=== PATIENT | female | born 1995 | race American Indian/Alaskan Native ===

== ENCOUNTER 2019-05-09 20:42 | Inpatient (IN) | payer MEDICAID ==
[2019-05-09] MEDS ORDERED: DINOPROSTONE 10 MG VAG SUPP VG ONE (22:58)
[2019-05-09] MEDS ORDERED: ePHEDrine SULFATE 50 MG/1 ML INJ IV PRN (22:58)
[2019-05-09] MEDS ORDERED: TERBUTALINE 1 MG/1 ML INJ IVP PRN (22:58)
[2019-05-09] MEDS ORDERED: MINERAL OIL 30 ML ORAL LIQD PO PRN (22:58)
[2019-05-09] MEDS ORDERED: LIDOCAINE (2%) 20 MG/1 ML VIAL 20 ML MDV INFILTRATI ONE (22:58)
[2019-05-09] MEDS ORDERED: TERBUTALINE 1 MG/1 ML INJ SUB-Q PRN (22:58)
[2019-05-09] MEDS ORDERED: OXYTOCIN 20 UNIT/1000ML DRIP 20 UNITS/1,000 ML BAG IV SCH (23:00)
[2019-05-09 23:02] LABS: Hematocrit 34.7 % (30.3-42.9); Hemoglobin 11.5 gm/dl (10.1-14.3); Mean Corpuscular HGB Conc 33 % (30-34); Mean Corpuscular Volume 80 fl (79-97); Platelet Count 226 K/mm3 (140-440); Red Blood Count 4.33 M/mm3 (3.65-5.03); Red Cell Distribution Width 16.5 % (13.2-15.2)
[2019-05-10] MEDS ORDERED: ONDANSETRON 4 MG/2 ML INJ IV PRN (03:07)
[2019-05-10] MEDS: fentaNYL 100 MCG/2 ML INJ IV PRN (03:32)
[2019-05-10] MEDS: BUTORPHANOL 2 MG/1 ML INJ IV PRN ×3 (05:05→23:06)
[2019-05-10] MEDS: LACTATED RINGERS 1,000 ML IV SCH ×4 (05:10→20:02)
--- NOTE | 2019-05-10 05:22 | History and Physical Report ---
History of Present Illness Date of examination: 05/10/19 Date of admission: 05/09/19 20:42 Chief complaint: IOL secondary to morbid obesity History of present illness: 23 yo, @ 39.5 wks gestation, who initiated care with [facility] at 17.0 wks gestation. Care was co-managed by [facility] d/t morbid obesity. Her was complicated by Late PNC, Morbid obesity, Anemia, and Vit D deficiency. She reports to [facility] for IOL secondary to morbid obesity per [facility] recommendations. Reports + FM. Denies VB or LOF. Labs: A+, antibody negative; PAP normal; rubella immune; VDRL non-reactive; HBsAg negative; HIV negative; Gc/Chlamydia/Trich negative; Varicella immune HSVII negative; 1 hr Gtt - 101; GBS negative. Past History Past Medical History: other (Morbid obesity (BMI - 40.9); Anemia) Past Surgical History: no surgical history Family/Genetic History: diabetes, hypertension (maternal aunt), other (Chronic Bronchitis) Social history: single, full code. denies: smoking, alcohol abuse, prescription drug abuse, IV drug use - Obstetrical History Expected Date of Delivery: 05/12/19 Actual Gestation: 39 Week(s) 5 Day(s) : 1 Para: 0 Hx # Term Pregnancies: 0 Number of Pregnancies: 0 Spontaneous Abortions: 0 Induced : 0 Number of Living Children: 0 Medications and Allergies Allergies Allergy/AdvReac Type Severity Reaction Status Date / Time No Known Allergies Allergy Verified 05/09/19 23:08 Active Meds: Active Medications Butorphanol Tartrate (Stadol) 2 mg IV Q2H PRN PRN Reason: Labor Pain Last Admin: 05/10/19 05:05 Dose: 2 mg Documented by: Ephedrine Sulfate (Ephedrine Sulfate) 10 mg IV Q2M PRN PRN Reason: Hypotension Fentanyl (Sublimaze) 100 mcg IV Q2HR PRN PRN Reason: Labor Pain Last Admin: 05/10/19 03:32 Dose: 100 mcg Documented by: Oxytocin/Sodium Chloride (Pitocin/Ns 20 Unit/1000ml Drip) 20 units in 1,000 mls @ 125 mls/hr IV DIRECT RAVINDRA Lactated Ringer's (Lactated Ringers) 1,000 mls @ 125 mls/hr IV DIRECT RAVINDRA Last Admin: 05/10/19 05:10 Dose: 1,200 mls/hr Documented by: Mineral Oil (Mineral Oil) 30 ml PO QHS PRN PRN Reason: Constipation Ondansetron HCl (Zofran) 4 mg IV Q4H PRN PRN Reason: Nausea And Vomiting Last Admin: 05/10/19 03:32 Dose: 4 mg Documented by: Terbutaline Sulfate (Brethine) 0.25 mg SUB-Q ONCE PRN PRN Reason: Hyperstimulation/Hypertonicity Terbutaline Sulfate (Brethine) 0.25 mg IVP ONCE PRN PRN Reason: Hyperstimulation/Hypertonicity Review of Systems All systems: negative - Vital Signs Vital signs: Vital Signs Temp Pulse Resp BP 98.4 F 90 18 140/84 05/09/19 22:21 05/09/19 22:21 05/09/19 22:21 05/09/19 22:21 Temp Pulse Resp BP Pulse Ox 97.8 F 88 18 120/60 05/10/19 04:00 05/10/19 03:48 05/10/19 04:00 05/10/19 03:48 - Physical Exam Breasts: Positive: deferred Cardiovascular: Regular rate Lungs: Positive: Normal air movement Abdomen: Positive: other (gravid) Uterus: Positive: enlarged (S>D) Extremities: Positive: normal Deep Tendon Reflex Grade: Normal +2 - Obstetrical FHR: category 1 Uterine Contraction Monitor Mode: External Cervical Dilatation: 0 Cervical Effacement Percentage: 50 station: -3 Uterine Contraction Pattern: Irregular Uterine Tone Measurement Phase: Resting Uterine Contraction Intensity: Mild Results Result Diagrams: 05/09/19 22:38 Abnormal lab results 05/09/19 Range/Units 22:38 MCH 27 L (28-32) pg RDW 16.5 H (13.2-15.2) % All other labs normal. Assessment and Plan - Patient Problems (1) Encounter for induction of labor Current Visit: Yes Status: Acute Plan to address problem: Admit to L & D Cervidil placement x 12 hrs as tolerated Pain meds as desired Anticipate (2) Morbid obesity with BMI of 40.0-44.9, adult Current Visit: Yes Status: Acute (3) Late care Current Visit: Yes Status: Acute
--- NOTE | 2019-05-10 09:25 | Progress Note ---
Assessment and Plan - Patient Problems (1) 39 weeks gestation of Current Visit: Yes Status: Acute (2) Encounter for induction of labor Current Visit: Yes Status: Acute Plan to address problem: Continue routine labor orders Order given for 500ml IVF bolus Will continue cervical ripening, as appropriate Anticipate vaginal delivery (3) Morbid obesity with BMI of 40.0-44.9, adult Current Visit: Yes Status: Acute Subjective - Subjective Date of service: 05/10/19 Principal diagnosis: IUP @ 39 weeks 5 days; IOL secondary to Morbid Obesity Interval history: see H&P Pt in right lateral position with family members at bedside. Patient reports: movement normal, contractions, no loss of fluid, no vaginal bleeding Objective - Vital Signs Vital Signs: Vital Signs - 12hr 05/09/19 05/09/19 05/10/19 22:21 22:37 00:00 Temperature 98.4 F 98.2 F Pulse Rate 90 90 Respiratory 18 18 Rate Blood Pressure 140/84 Blood Pressure 140/84 [Right] 05/10/19 05/10/19 05/10/19 00:01 03:41 03:48 Temperature Pulse Rate 76 87 88 Respiratory Rate Blood Pressure 109/60 123/69 120/60 Blood Pressure [Right] 05/10/19 05/10/19 04:00 07:31 Temperature 97.8 F 98.3 F Pulse Rate 75 Respiratory 18 18 Rate Blood Pressure 98/55 Blood Pressure [Right] - Exam FHR: auscultation normal, category 1 FHR comments: baseline 120, moderate variability, 15x15 accels, no decels Uterine Contraction Monitor Mode: External Cervical Dilatation: 1 Cervical Effacement Percentage: 30 station: -3 Uterine Contraction Frequency (min): 1 Uterine Contraction Pattern: Regular (tachysystole present) - Labs Labs: Abnormal Labs 05/09/19 22:38 MCH 27 L RDW 16.5 H Laboratory Results - last 24 hr 05/09/19 05/09/19 22:38 22:38 WBC 7.5 RBC 4.33 Hgb 11.5 Hct 34.7 MCV 80 MCH 27 L MCHC 33 RDW 16.5 H Plt Count 226 Blood Type A POSITIVE Antibody Screen Negative
[2019-05-10] MEDS: OXYTOCIN DRIP 30 UNITS/500 ML BAG IV SCH (12:50)
[2019-05-11] MEDS: BUTORPHANOL 2 MG/1 ML INJ IV PRN (01:19)
[2019-05-11] MEDS: fentaNYL 100 MCG/2 ML INJ IV PRN (03:18)
[2019-05-11] MEDS: LACTATED RINGERS 1,000 ML IV SCH ×2 (05:58→08:01)
[2019-05-11] MEDS ORDERED: ePHEDrine SULFATE 50 MG/1 ML INJ IV PRN (06:44)
[2019-05-11] MEDS ORDERED: NALOXONE 2 MG/2 ML INJ IV PRN (06:44)
--- NOTE | 2019-05-11 06:46 | Anesthesia Consultation ---
Anesthesia Consult and Med Hx Date of service: 05/11/19 - Airway Anesthetic Teeth Evaluation: Good ROM Head & Neck: Adequate Mental/Hyoid Distance: Adequate Mallampati Class: Class III Intubation Access Assessment: Probably Good - Pulmonary Exam CTA: Yes - Cardiac Exam Cardiac Exam: RRR - Pre-Operative Health Status ASA Pre-Surgery Classification: ASA3 Proposed Anesthetic Plan: Epidural - Pulmonary Hx Smoking: No Hx Asthma: No Hx Respiratory Symptoms: No SOB: No COPD: No Home Oxygen Therapy: No Hx Pneumonia: No Hx Sleep Apnea: No - Cardiovascular System Hx Hypertension: No Hx Coronary Artery Disease: No Hx Heart Attack/AMI: No Hx Angina: No Hx Percutaneous Transluminal Coronary Angioplasty (PTCA): No Hx Cardia Arrhythmia: No Hx Pacemaker: No Hx Internal Defibrillator: No Hx Valvular Heart Disease: No Hx Heart Murmur: No Hx Peripheral Vascular Disease: No - Central Nervous System Hx Neuromuscular Disorder: No Hx Seizures: No CVA: No Hx Back Pain: No Hx Psychiatric Problems: No - Gastrointestinal Hx Ulcer: No Hx Gastroesophageal Reflux Disease: No - Endocrine Hx Renal Disease: No Hx End Stage Renal Disease: No Hx Cirrhosis: No Hx Liver Disease: No Hx Insulin Dependent Diabetes: No Hx Non-Insulin Dependent Diabetes: No Hx Thyroid Disease: No Hx Hypothyroidism: No Hx Hyperthyroidism: No - Hematic Hx Anemia: No Hx Sickle Cell Disease: No - Other Systems Hx Alcohol Use: No Hx Substance Use: No Hx Cancer: No Hx Obesity: Yes (BMI 43.9)
[2019-05-11] MEDS ORDERED: fentaNYL-BUPIV 2 MCG/ML-0.125% 200 MCG/100 ML BAG EPIDURAL SCH (07:00)
[2019-05-11] MEDS ORDERED: AMPICILLIN/NS 2 GM/100 ML 2 GM/100 ML BAG IV ONE (08:00)
[2019-05-11] MEDS: OXYTOCIN DRIP 30 UNITS/500 ML BAG IV SCH (08:03)
--- NOTE | 2019-05-11 10:21 | Progress Note ---
Assessment and Plan A: IUP @ 39 6/7 Weeks Category I Tracing Protracted Labor Maternal Obesity GBS Positive P: Internals X2 placed Continue Pitocin Augmentation Multiple Maternal Position Changes Continue GBS Prophylaxis Subjective - Subjective Date of service: 05/11/19 Principal diagnosis: IUP @ 39 weeks 5 days; IOL secondary to Morbid Obesity Patient reports: movement normal, contractions (Resting well under epidural anesthesia), no loss of fluid, no vaginal bleeding Objective - Vital Signs Vital Signs: Vital Signs - 12hr 05/10/19 05/10/19 05/10/19 22:30 22:31 22:35 Temperature Pulse Rate 60 62 60 Respiratory Rate Blood Pressure 110/58 O2 Sat by Pulse 98 99 Oximetry 05/10/19 05/10/19 05/10/19 22:40 22:51 22:56 Temperature Pulse Rate 68 70 61 Respiratory Rate Blood Pressure O2 Sat by Pulse 98 100 99 Oximetry 05/10/19 05/10/19 05/10/19 23:01 23:06 23:11 Temperature Pulse Rate 73 76 70 Respiratory Rate Blood Pressure 130/68 O2 Sat by Pulse 99 99 98 Oximetry 05/10/19 05/10/19 05/10/19 23:15 23:16 23:30 Temperature Pulse Rate 68 67 66 Respiratory Rate Blood Pressure 142/78 O2 Sat by Pulse 94 97 Oximetry 05/11/19 05/11/19 05/11/19 00:13 00:14 00:18 Temperature Pulse Rate 69 86 88 Respiratory Rate Blood Pressure 118/59 O2 Sat by Pulse 90 94 Oximetry 05/11/19 05/11/19 05/11/19 00:23 00:28 00:29 Temperature Pulse Rate 64 76 79 Respiratory Rate Blood Pressure O2 Sat by Pulse 96 95 94 Oximetry 05/11/19 05/11/19 05/11/19 00:31 00:33 00:38 Temperature Pulse Rate 65 92 H 68 Respiratory Rate Blood Pressure 135/74 O2 Sat by Pulse 95 95 Oximetry 05/11/19 05/11/19 05/11/19 00:43 00:48 00:53 Temperature Pulse Rate 72 71 90 Respiratory Rate Blood Pressure O2 Sat by Pulse 95 94 97 Oximetry 05/11/19 05/11/19 05/11/19 00:58 01:00 01:03 Temperature Pulse Rate 65 74 69 Respiratory Rate Blood Pressure 143/82 O2 Sat by Pulse 94 97 Oximetry 05/11/19 05/11/19 05/11/19 01:07 01:08 01:13 Temperature Pulse Rate 83 78 87 Respiratory Rate Blood Pressure O2 Sat by Pulse 88 100 98 Oximetry 05/11/19 05/11/19 05/11/19 01:14 01:18 01:19 Temperature Pulse Rate 69 79 Respiratory 18 Rate Blood Pressure O2 Sat by Pulse 94 95 Oximetry 05/11/19 05/11/19 05/11/19 01:21 01:23 01:27 Temperature Pulse Rate 67 65 69 Respiratory Rate Blood Pressure O2 Sat by Pulse 93 94 89 Oximetry 05/11/19 05/11/19 05/11/19 01:28 01:30 01:32 Temperature Pulse Rate 88 63 75 Respiratory Rate Blood Pressure 144/82 O2 Sat by Pulse 93 90 Oximetry 05/11/19 05/11/19 05/11/19 01:33 01:38 01:43 Temperature Pulse Rate 66 62 88 Respiratory Rate Blood Pressure O2 Sat by Pulse 94 95 94 Oximetry 05/11/19 05/11/19 05/11/19 01:48 01:49 01:53 Temperature Pulse Rate 97 H 73 68 Respiratory Rate Blood Pressure O2 Sat by Pulse 94 92 96 Oximetry 05/11/19 05/11/19 05/11/19 01:56 01:58 01:59 Temperature Pulse Rate 65 64 63 Respiratory Rate Blood Pressure 123/57 O2 Sat by Pulse 94 95 Oximetry 05/11/19 05/11/19 05/11/19 02:02 02:03 02:08 Temperature Pulse Rate 63 99 H 60 Respiratory Rate Blood Pressure O2 Sat by Pulse 94 97 95 Oximetry 05/11/19 05/11/19 05/11/19 02:09 02:13 02:17 Temperature Pulse Rate 68 81 101 H Respiratory Rate Blood Pressure O2 Sat by Pulse 94 97 85 Oximetry 05/11/19 05/11/19 05/11/19 02:41 02:43 02:46 Temperature Pulse Rate 67 60 90 Respiratory Rate Blood Pressure 131/67 O2 Sat by Pulse 97 96 Oximetry 05/11/19 05/11/19 05/11/19 02:51 02:56 03:00 Temperature Pulse Rate 66 60 61 Respiratory Rate Blood Pressure 145/68 O2 Sat by Pulse 97 96 90 Oximetry 05/11/19 05/11/19 05/11/19 03:01 03:05 03:06 Temperature Pulse Rate 70 99 H 86 Respiratory Rate Blood Pressure O2 Sat by Pulse 97 94 94 Oximetry 05/11/19 05/11/19 05/11/19 03:11 03:12 03:16 Temperature Pulse Rate 58 L 107 H 66 Respiratory Rate Blood Pressure O2 Sat by Pulse 96 94 96 Oximetry 05/11/19 05/11/19 05/11/19 03:18 03:21 03:25 Temperature Pulse Rate 61 78 Respiratory 18 Rate Blood Pressure O2 Sat by Pulse 97 94 Oximetry 05/11/19 05/11/19 05/11/19 03:26 03:30 04:01 Temperature Pulse Rate 71 67 70 Respiratory Rate Blood Pressure 158/95 142/81 O2 Sat by Pulse 95 Oximetry 05/11/19 05/11/19 05/11/19 04:31 05:00 05:30 Temperature Pulse Rate 83 86 70 Respiratory Rate Blood Pressure 124/68 139/78 122/58 O2 Sat by Pulse Oximetry 05/11/19 05/11/19 05/11/19 05:50 05:55 06:00 Temperature Pulse Rate 107 H 94 H 82 Respiratory Rate Blood Pressure 150/77 O2 Sat by Pulse 99 100 99 Oximetry 05/11/19 05/11/19 05/11/19 06:05 06:09 06:10 Temperature Pulse Rate 82 88 74 Respiratory Rate Blood Pressure 110/58 O2 Sat by Pulse 98 99 Oximetry 05/11/19 05/11/19 05/11/19 06:12 06:13 06:15 Temperature Pulse Rate 86 101 H 86 Respiratory Rate Blood Pressure 104/55 98/36 O2 Sat by Pulse 50 L 97 Oximetry 05/11/19 05/11/19 05/11/19 06:17 06:19 06:20 Temperature Pulse Rate 171 H 56 L 90 Respiratory Rate Blood Pressure 153/72 O2 Sat by Pulse 83 L 95 Oximetry 05/11/19 05/11/19 05/11/19 06:24 06:25 06:26 Temperature Pulse Rate 64 67 61 Respiratory Rate Blood Pressure 75/36 84/46 O2 Sat by Pulse 99 Oximetry 05/11/19 05/11/19 05/11/19 06:29 06:30 06:32 Temperature Pulse Rate 56 L 64 60 Respiratory Rate Blood Pressure 95/50 91/49 74/40 O2 Sat by Pulse 100 Oximetry 05/11/19 05/11/19 05/11/19 06:34 06:35 06:36 Temperature Pulse Rate 58 L 70 63 Respiratory Rate Blood Pressure 77/41 74/37 O2 Sat by Pulse 100 Oximetry 05/11/19 05/11/19 05/11/19 06:38 06:40 06:42 Temperature Pulse Rate 60 71 85 Respiratory Rate Blood Pressure 75/41 79/44 O2 Sat by Pulse 100 78 L Oximetry 05/11/19 05/11/19 05/11/19 06:45 06:46 06:50 Temperature Pulse Rate 64 64 81 Respiratory Rate Blood Pressure 85/47 O2 Sat by Pulse 100 100 Oximetry 05/11/19 05/11/19 05/11/19 06:54 06:55 06:57 Temperature Pulse Rate 67 88 83 Respiratory Rate Blood Pressure 87/48 89/50 O2 Sat by Pulse 93 93 Oximetry 05/11/19 05/11/19 05/11/19 07:00 07:02 07:05 Temperature Pulse Rate 65 85 76 Respiratory Rate Blood Pressure O2 Sat by Pulse 100 46 L 100 Oximetry 05/11/19 05/11/19 05/11/19 07:07 07:10 07:12 Temperature Pulse Rate 71 71 60 Respiratory Rate Blood Pressure 88/51 89/51 O2 Sat by Pulse 100 Oximetry 05/11/19 05/11/19 05/11/19 07:15 07:19 07:20 Temperature Pulse Rate 70 58 L 60 Respiratory Rate Blood Pressure 92/54 O2 Sat by Pulse 100 100 Oximetry 05/11/19 05/11/19 05/11/19 07:22 07:25 07:26 Temperature 97.8 F Pulse Rate 68 68 68 Respiratory 16 Rate Blood Pressure 86/48 85/47 O2 Sat by Pulse 100 Oximetry 05/11/19 05/11/19 05/11/19 07:28 07:29 07:30 Temperature Pulse Rate 87 59 L 63 Respiratory Rate Blood Pressure 133/61 O2 Sat by Pulse 90 100 Oximetry 05/11/19 05/11/19 05/11/19 07:33 07:35 07:40 Temperature Pulse Rate 60 64 68 Respiratory Rate Blood Pressure 129/67 O2 Sat by Pulse 100 100 Oximetry 05/11/19 05/11/19 05/11/19 07:45 07:50 07:55 Temperature Pulse Rate 66 63 66 Respiratory Rate Blood Pressure O2 Sat by Pulse 100 100 100 Oximetry 05/11/19 05/11/19 05/11/19 08:00 08:04 08:05 Temperature Pulse Rate 64 64 62 Respiratory Rate Blood Pressure 143/75 O2 Sat by Pulse 100 100 Oximetry 05/11/19 05/11/19 05/11/19 08:10 08:15 08:20 Temperature Pulse Rate 69 77 66 Respiratory Rate Blood Pressure O2 Sat by Pulse 100 100 100 Oximetry 05/11/19 05/11/19 05/11/19 08:21 08:25 08:30 Temperature Pulse Rate 65 71 65 Respiratory Rate Blood Pressure 132/73 O2 Sat by Pulse 100 100 Oximetry 05/11/19 05/11/19 05/11/19 08:34 08:35 08:40 Temperature Pulse Rate 72 66 81 Respiratory Rate Blood Pressure 126/74 O2 Sat by Pulse 100 100 Oximetry 05/11/19 05/11/19 05/11/19 08:45 08:49 08:50 Temperature Pulse Rate 87 81 103 H Respiratory Rate Blood Pressure 130/77 O2 Sat by Pulse 100 97 Oximetry 05/11/19 05/11/19 05/11/19 09:03 09:04 09:08 Temperature Pulse Rate 71 66 66 Respiratory Rate Blood Pressure 117/55 O2 Sat by Pulse 97 98 Oximetry 05/11/19 05/11/19 05/11/19 09:13 09:18 09:19 Temperature Pulse Rate 70 71 75 Respiratory Rate Blood Pressure 112/58 O2 Sat by Pulse 95 96 Oximetry 05/11/19 05/11/19 05/11/19 09:23 09:24 09:28 Temperature Pulse Rate 71 78 68 Respiratory Rate Blood Pressure O2 Sat by Pulse 97 94 95 Oximetry 05/11/19 05/11/19 05/11/19 09:33 09:35 09:38 Temperature Pulse Rate 68 77 61 Respiratory Rate Blood Pressure 115/56 O2 Sat by Pulse 97 100 Oximetry 05/11/19 05/11/19 05/11/19 09:43 09:48 09:49 Temperature Pulse Rate 71 75 75 Respiratory Rate Blood Pressure 113/64 O2 Sat by Pulse 100 100 Oximetry 05/11/19 05/11/19 05/11/19 09:53 09:58 10:03 Temperature Pulse Rate 65 64 71 Respiratory Rate Blood Pressure O2 Sat by Pulse 100 100 100 Oximetry 05/11/19 05/11/19 05/11/19 10:04 10:08 10:13 Temperature Pulse Rate 65 68 64 Respiratory Rate Blood Pressure 117/62 O2 Sat by Pulse 100 100 Oximetry - Exam Breasts: normal Cardiovascular: Regular rate Lungs: Clear to auscultation, Normal air movement Abdomen: Present: normal appearance, soft Uterus: Present: normal, firm, fundal height above umbilicus FHR: category 1 Uterine Contraction Monitor Mode: Internal Cervical Dilatation: 7.5 (leaking a moderate amount of clear fluid) Cervical Effacement Percentage: 90 station: 0 Uterine Contraction Pattern: Irregular Uterine Tone Measurement Phase: Resting Uterine Contraction Intensity: Moderate Extremities: normal - Labs Labs: Abnormal Labs 05/09/19 22:38 MCH 27 L RDW 16.5 H Laboratory Results - last 24 hr 05/09/19 22:38 RPR Nonreactive
[2019-05-11] MEDS ORDERED: AMPICILLIN/NS 1 GM/50 ML 1 GM/50 ML BAG IV SCH (12:00)
[2019-05-11] MEDS ORDERED: MINERAL OIL 30 ML ORAL LIQD ONE (14:26)
[2019-05-11] MEDS ORDERED: miSOPROStol 200 MCG TAB ONE (14:36)
[2019-05-11] MEDS ORDERED: OXYTOCIN 10 UNIT/1 ML INJ IM ONE (14:40)
[2019-05-11] MEDS ORDERED: OXYTOCIN 10 UNIT/1 ML INJ ONE (14:49)
[2019-05-11] MEDS ORDERED: miSOPROStol 200 MCG TAB PR ONE (15:06)
[2019-05-11] MEDS ORDERED: LANOLIN/ZINC/DIMETHICONE (LANSINOH) 7 GM TP PRN (15:08)
[2019-05-11] MEDS ORDERED: diphenhydrAMINE 25 MG CAP PO PRN (15:08)
--- NOTE | 2019-05-11 15:23 | Procedure Note ---
OB Delivery Note - Delivery Date of Delivery: 05/11/19 (1430) Surgeon: REMI HUFF Estimated blood loss: other (350) - Vaginal Delivery presentation: vertex Delivery position: OA Intrapartum events: prolonged active phase Delivery induction: oxytocin Delivery augmentation: pitocin Delivery monitor: internal FHT, internal uterine Route of delivery: Delivery placenta: spontaneous Delivery cord: 3 umbilical vessels Episiotomy: none Delivery laceration: 2nd degree Delivery repair: vicryl Anesthesia: epidural Delivery comments: of a live 7'9 male over a 2nd degree perineal laceration under epidural anesthesia with Apgars of 8 and 9 at 1430 on 05/11/2019. Infant directly to maternal abd/chest, skin to skin contact. Spontaneous delivery of placenta complete and intact with [place] side presenting @ 1433. Fundus is firm and midline. 800mcg of Cytotec placed per rectum; 10U of Pitocin given after placental delivery; IV access was lost at time of . Lochia is scant. Perineal laceration repaired with 2-[address]-1. Delayed cord clamping and cutting; Cord cut by the Father of the Baby. Placenta discarded. GBS prophylaxis x2. - A at 1 minute: 8 at 5 minutes: 9 Gender: Male (7'9)
[2019-05-11] MEDS ORDERED: MINERAL OIL 30 ML ORAL LIQD PO ONE (16:00)
[2019-05-11] MEDS: HYDROcodone/ACETAMINOPHEN 5-325 MG TAB PO PRN ×2 (17:38→18:02)
[2019-05-11] MEDS: IBUPROFEN 600 MG TAB PO SCH (22:22)
[2019-05-12] MEDS: HYDROcodone/ACETAMINOPHEN 5-325 MG TAB PO PRN (00:05)
[2019-05-12] MEDS: IBUPROFEN 600 MG TAB PO SCH ×5 (04:06→21:35)
[2019-05-12 04:21] LABS: Hematocrit 29.8 % (30.3-42.9); Hemoglobin 9.7 gm/dl (10.1-14.3)
--- NOTE | 2019-05-12 10:53 | Progress Note ---
Assessment and Plan A: PPD#1 s/p Bottlefeeding Asymptomatic anemia Stable P: Routine PP orders Anticipate discharge home 05/13 Subjective - Subjective Date of service: 05/12/19 Principal diagnosis: PPD#1 s/p 05/11 @ 14:30 Patient reports: appetite normal, voiding normally, pain well controlled, flatus, ambulating normally : doing well, bottle feeding Objective - Vital Signs Latest vital signs: Vital Signs Temp Pulse Resp BP Pulse Ox 05/12/19 08:10 98.0 F 76 20 120/76 98 05/12/19 00:40 98.4 F 97 H 20 126/82 99 05/11/19 20:12 98.7 F 82 20 118/68 99 05/11/19 16:19 88 130/77 05/11/19 15:49 86 135/76 05/11/19 15:42 98.3 F 12 05/11/19 15:34 85 125/72 05/11/19 15:30 96 H 121/78 05/11/19 14:28 112 H 100 05/11/19 14:23 117 H 100 05/11/19 14:21 120 H 155/94 05/11/19 14:18 106 H 100 05/11/19 14:13 88 100 05/11/19 14:08 104 H 100 05/11/19 14:05 100 H 108/56 05/11/19 14:03 114 H 100 05/11/19 13:58 107 H 100 05/11/19 13:53 102 H 100 05/11/19 13:49 105 H 122/83 05/11/19 13:48 104 H 100 05/11/19 13:43 116 H 100 05/11/19 13:38 109 H 100 05/11/19 13:35 104 H 140/91 05/11/19 13:33 109 H 100 05/11/19 13:28 101 H 100 05/11/19 13:23 100 H 100 05/11/19 13:20 108 H 132/94 05/11/19 13:18 102 H 100 05/11/19 13:13 112 H 100 05/11/19 13:08 98 H 100 05/11/19 13:04 107 H 129/81 05/11/19 13:03 114 H 76 L 05/11/19 12:58 72 100 05/11/19 12:53 96 H 100 05/11/19 12:49 70 121/76 05/11/19 12:48 71 100 05/11/19 12:43 90 100 05/11/19 12:38 72 100 05/11/19 12:34 64 123/70 05/11/19 12:33 75 100 05/11/19 12:28 94 H 100 05/11/19 12:23 65 100 05/11/19 12:19 71 127/73 05/11/19 12:18 72 100 05/11/19 12:13 67 100 05/11/19 12:08 69 100 05/11/19 12:04 62 121/73 05/11/19 12:03 63 100 05/11/19 11:58 66 100 05/11/19 11:53 69 100 05/11/19 11:49 65 123/72 05/11/19 11:48 69 100 05/11/19 11:43 68 100 05/11/19 11:38 64 100 05/11/19 11:34 63 127/77 05/11/19 11:33 65 100 05/11/19 11:28 64 100 05/11/19 11:23 66 100 05/11/19 11:19 70 126/70 05/11/19 11:18 71 100 05/11/19 11:13 64 100 05/11/19 11:08 67 100 05/11/19 11:04 59 L 116/68 05/11/19 11:03 74 100 05/11/19 10:58 64 100 05/11/19 10:53 72 100 Intake and Output 05/11/19 05/12/19 05/12/19 23:59 07:59 15:59 Intake Total 440 480 Output Total 6 Balance 440 474 Intake: Oral 440 Intake, Free Water 480 Output: Urine 6 Void 6 Other: Total, Intake Amount 120 Total, Output Amount 6 # Voids Void 1 Estimated Blood Loss 350 - Exam Breasts: Present: normal Cardiovascular: Present: Regular rate, Normal S1, Normal S2, No murmurs Lungs: Present: Clear to auscultation, Normal air movement Abdomen: Present: normal appearance, soft, normal bowel sounds Vulva: both: laceration/episiotomy (well approximated) Uterus: Present: firm, fundal height at umbilicus Extremities: Present: normal Deep Tendon Reflex Grade: Normal +2 - Labs Labs: Abnormal lab results 05/12/19 Range/Units 03:54 Hgb 9.7 L (10.1-14.3) gm/dl Hct 29.8 L (30.3-42.9) %
--- NOTE | 2019-05-12 10:54 | Discharge Summary ---
Providers - Providers Date of Admission: 05/09/19 20:42 Date of discharge: 05/13/19 Attending physician: CANDI ARAUZ MD Primary care physician: CANDI ARAUZ MD Hospitalization Reason for admission: induction of labor, IUP at term, other (Obesity) Delivery: Procedure details: see delivery note Episiotomy: none Laceration: 2nd degree (well approximated) Other procedures: none complications: none Discharge diagnosis: IUP at term delivered baby: male Condition at discharge: Good Disposition: DC-01 TO HOME OR SELFCARE Plan - Provider Discharge Summary Activity: routine, no sex for 6 weeks, no heavy lifting 4 weeks, no strenuous exercise Diet: routine Instructions: routine Additional instructions: [] Smoking cessation referral if applicable(refer to patient education folder for contact #) [] Refer to [facility]'s [facility] Booklet Call your doctor immediately for: * Fever > 100.5 * Heavy vaginal bleeding ( >1 pad per hour) * Severe persistent headache * Shortness of breath * Reddened, hot, painful area to leg or breast * Drainage or odor from incision. * Keep incision clean and dry at all times and follow doctor's instructions regarding bathing/showering - Follow up plan Follow up: CANDI ARAUZ MD [Primary Care Provider] - 6 Weeks
[2019-05-12] MEDS: PRENATAL VIT27-FE FUMARATE-FOLIC ACID VIT TAB PO SCH (11:14)
[2019-05-13] MEDS: IBUPROFEN 600 MG TAB PO SCH ×2 (05:48→13:14)
[2019-05-13] MEDS ORDERED: BENZOCAINE/MENTHOL 20/0.5% TOP SPRAY 56 GM TP PRN (09:00)
[2019-05-13] MEDS ORDERED: WITCH HAZEL/ GLYCERIN PAD TP PRN (09:00)
[2019-05-13] MEDS: PRENATAL VIT27-FE FUMARATE-FOLIC ACID VIT TAB PO SCH (10:18)
[2019-05-13 12:50] VITALS: BP 134/87
== END 2019-05-13 17:25 | disposition home or self-care (01) | DRG 775 ==
LOC: LD 20:42 → OB 05-11 17:12
PROVIDERS: ADMIT Obstetrics & Gynecology; ATTEND Obstetrics & Gynecology
PROC: 10E0XZZ Delivery of Products of Conception, External Approach (ICD-10-PCS; principal; 2019-05-11)
PROC: 0KQM0ZZ Repair Perineum Muscle, Open Approach (ICD-10-PCS; 2019-05-11)
PROC: 3E033VJ Introduction of Other Hormone into Peripheral Vein, Percutaneous Approach (ICD-10-PCS; 2019-05-11)
PROC: 3E0R3BZ Introduction of Anesthetic Agent into Spinal Canal, Percutaneous Approach (ICD-10-PCS; 2019-05-11)
PROC: 00HU33Z Insertion of Infusion Device into Spinal Canal, Percutaneous Approach (ICD-10-PCS; 2019-05-11)
DX: O99.214 Obesity complicating childbirth (principal); O99.824 Streptococcus B carrier state complicating childbirth; E66.01 Morbid (severe) obesity due to excess calories; O70.1 Second degree perineal laceration during delivery; O99.02 Anemia complicating childbirth; D64.9 Anemia, unspecified; Z83.3 Family history of diabetes mellitus; Z3A.39 39 weeks gestation of pregnancy; Z37.0 Single live birth; Z82.49 Family history of ischemic heart disease and other diseases of the circulatory system
CPT/HCPCS: 36415; 59200; 85014; 85018; 85027; 86592; 86850; 86900; 86901; G0378; A6250; J0290; J0595; J2405; J2590; J3010; J7120

== ENCOUNTER 2020-02-22 16:36 | Emergency (ER) | payer SELFPAY | END 2020-02-22 17:21 | disposition left against medical advice (07) | LOC: ED 16:36 | DX: Z53.21 Procedure and treatment not carried out due to patient leaving prior to being seen by health care provider (principal) ==

== ENCOUNTER 2020-11-02 23:45 | Emergency (ER) | payer SELFPAY ==
[2020-11-03] MEDS ORDERED: ONDANSETRON 4 MG/2 ML INJ IV ONE (04:11)
[2020-11-03] MEDS ORDERED: KETOROLAC 30 MG/1 ML INJ IV ONE (04:11)
[2020-11-03] MEDS ORDERED: FAMOTIDINE 20 MG/2 ML INJ IV ONE ×2 (04:11→04:52)
[2020-11-03] MEDS ORDERED: KETOROLAC 30 MG/1 ML INJ ONE ×2 (04:52)
[2020-11-03] MEDS ORDERED: ONDANSETRON 4 MG/2 ML INJ ONE (04:52)
--- NOTE | 2020-11-03 05:38 | Emergency Department Report ---
ED Abdominal Pain HPI - General Chief Complaint: Abdominal Pain Stated Complaint: SIDE/BACK PAIN Time Seen by Provider: 11/03/20 04:11 Source: patient Mode of arrival: Ambulatory Limitations: No Limitations - History of Present Illness Initial Comments: Patient is a 25-year-old F [place] female with past medical history of gallstones who is presenting with right upper quadrant pain. Pain is been present for approximately a day. States she did eat some tacos earlier. She has some mild nausea but denies vomiting states is been no diarrhea cough cold congestion fevers or chills at this time. Radiation: other (right scapula) Severity scale (0 -10): 6 Quality: aching Consistency: intermittent Improves With: nothing Worsens With: eating Associated Symptoms: nausea, chills. denies: vomiting, diarrhea, fever, constipation, dysuria, melena, hematuria, anorexia - Related Data Previous Rx's Medication Instructions Recorded Last Taken Type Ibuprofen [Motrin 600 MG tab] 600 mg PO Q8H PRN #30 tablet 12/25/19 Unknown Rx HYDROcodone/APAP 5-325 [[place] 1 each PO Q6HR PRN #10 tablet 11/03/20 Unknown Rx 5/325] Ketorolac [Toradol] 10 mg PO Q6H PRN #12 tablet 11/03/20 Unknown Rx Ondansetron [Zofran Odt] 4 mg PO Q8HR #10 tab.rapdis 11/03/20 Unknown Rx Allergies Allergy/AdvReac Type Severity Reaction Status Date / Time No Known Allergies Allergy Verified 05/09/19 23:08 ED Review of Systems ROS: Stated complaint: SIDE/BACK PAIN Other details as noted in HPI Comment: All other systems reviewed and negative ED Past Medical Hx - Past Medical History Hx Hypertension: No Hx Heart Attack/AMI: No Hx Congestive Heart Failure: No Hx Diabetes: No Hx Deep Vein Thrombosis: No Hx Liver Disease: No Hx Renal Disease: No Hx Sickle Cell Disease: No Hx Seizures: No Hx Asthma: No Hx COPD: No Hx HIV: No - Surgical History Hx Pacemaker: No Hx Internal Defibrillator: No - Social History Smoking Status: Never Smoker Substance Use Type: None - Medications Home Medications: Home Medications Medication Instructions Recorded Confirmed Last Taken Type Ibuprofen [Motrin 600 MG tab] 600 mg PO Q8H PRN #30 tablet 12/25/19 Unknown Rx HYDROcodone/APAP 5-325 [[place] 1 each PO Q6HR PRN #10 tablet 11/03/20 Unknown Rx 5/325] Ketorolac [Toradol] 10 mg PO Q6H PRN #12 tablet 11/03/20 Unknown Rx Ondansetron [Zofran Odt] 4 mg PO Q8HR #10 tab.rapdis 11/03/20 Unknown Rx ED Physical Exam - General Limitations: No Limitations General appearance: alert, in no apparent distress - Head Head exam: Present: atraumatic, normocephalic - Eye Eye exam: Present: normal appearance. Absent: PERRL, EOMI - ENT ENT exam: Present: mucous membranes moist - Neck Neck exam: Present: normal inspection - Respiratory Respiratory exam: Present: normal lung sounds bilaterally. Absent: respiratory distress, wheezes, rales, rhonchi - Cardiovascular Cardiovascular Exam: Present: regular rate, normal rhythm. Absent: systolic murmur, diastolic murmur, rubs, gallop - GI/Abdominal GI/Abdominal exam: Present: soft, tenderness (RUQ and epigastric), normal bowel sounds. Absent: distended - Extremities Exam Extremities exam: Present: normal inspection - Back Exam Back exam: Present: normal inspection - Neurological Exam Neurological exam: Present: alert, oriented X3 - Psychiatric Psychiatric exam: Present: normal affect, normal mood - Skin Skin exam: Present: warm, dry, intact, normal color. Absent: rash ED Course Vital Signs 11/03/20 00:06 Temperature 98.3 F Pulse Rate 75 Respiratory 16 Rate Blood Pressure 139/77 O2 Sat by Pulse 100 Oximetry ED Medical Decision Making - Lab Data Result diagrams: 11/03/20 05:22 11/03/20 05:22 - Radiology Data Patient does have some echogenic focus within the gallbladder. The gallbladder wall is 2 mm and is within normal limits. No pericholecystic fluid. Patient does have pain during the ultrasound. Common bile duct size within normal limits. - Medical Decision Making Patient with some biliary colic but no evidence of acute cholecystitis. Patient be referred to general surgery will be discharged home. Pain was improved at the time of discharge Critical care attestation.: If time is entered above; I have spent that time in minutes in the direct care of this critically ill patient, excluding procedure time. ED Disposition Clinical Impression: Biliary colic, Gallstones Disposition: DC-01 TO HOME OR SELFCARE Is pt being admited?: No Does the pt Need Aspirin: No Condition: Stable Instructions: Abdominal Pain (ED), Cholelithiasis, Biliary Colic, Adult Referrals: DAVID TRAVIS MD [Staff Physician] - 3-5 Days Time of Disposition: 06:02
[2020-11-03 05:52] LABS: Alanine Aminotransferase 37 units/L (7-56); Albumin 3.2 g/dL (3.9-5); BUN/Creatinine Ratio 10; Blood Urea Nitrogen 16 mg/dL (7-17); Calcium 8.5 mg/dL (8.4-10.2); Hemolysis Index 11
[2020-11-03 05:56] LABS: Basophils # (Auto) 0.1 K/mm3 (0.0-0.1); Basophils % (Auto) 0.4 % (0.0-1.8); Eosinophils # (Auto) 0.1 K/mm3 (0.0-0.4); Eosinophils % (Auto) 0.7 % (0.0-4.3); Hematocrit 35.8 % (30.3-42.9); Hemoglobin 11.7 gm/dl (10.1-14.3); Lymphocytes # (Auto) 2.4 K/mm3 (1.2-5.4); Lymphocytes % (Auto) 18.1 % (13.4-35.0); Mean Corpuscular HGB Conc 33 % (30-34); Mean Corpuscular Volume 79 fl (79-97); Monocytes # (Auto) 0.6 K/mm3 (0.0-0.8); Monocytes % (Auto) 4.5 % (0.0-7.3); Platelet Count 295 K/mm3 (140-440); Red Blood Count 4.54 M/mm3 (3.65-5.03); Red Cell Distribution Width 14.6 % (13.2-15.2)
--- NOTE | 2020-11-03 05:58 | Ultrasound Report ---
US abdomen limited INDICATION / CLINICAL INFORMATION: RUQ pain. COMPARISON: None available. FINDINGS: Liver is negative. Gallbladder contains several stones, but the gallbladder wall is normal in thickne ss. Common duct is normal in size. Pancreas is reasonably well-seen negative. IMPRESSION: 1. Cholelithiasis, without evidence of cholecystitis. Signer Name: Norm Kurtz MD Signed: 11/03/2020 5:54 AM Workstation Name: [id number]
[2020-11-03 07:14] VITALS: BP 135/78
== END 2020-11-03 07:14 | disposition home or self-care (01) ==
LOC: ED 23:45
DX: K80.50 Calculus of bile duct without cholangitis or cholecystitis without obstruction (principal); K80.20 Calculus of gallbladder without cholecystitis without obstruction; Z79.899 Other long term (current) drug therapy
CPT/HCPCS: 36415; 76705; 80053; 83690; 84703; 85025; 96374; 96375; 99284; J1885; J2405

== ENCOUNTER 2022-04-21 00:32 | Emergency (ER) | payer OTHER ==
--- NOTE | 2022-04-21 05:16 | XRay Report ---
CHEST 2 VIEWS INDICATION / CLINICAL INFORMATION: Dyspnea. COMPARISON: None available. FINDINGS: SUPPORT DEVICES: None. HEART / MEDIASTINUM: Heart size and mediastinal contour appear within normal limits. LUNGS / PLEURA: No significant pulmonary or pleural abnormality. No pneumothorax. BONES: No significant osseous abnormality. ADDITIONAL FINDINGS: No significant additional findings. IMPRESSION: 1. No active cardiopulmonary disease. Signer Name: Juan Cummings II, MD Signed: 04/21/2022 5:12 AM Workstation Name: [id number]
--- NOTE | 2022-04-21 08:42 | Ultrasound Report ---
LIMITED RUQ ABDOMINAL ULTRASOUND INDICATION: ruq pain. COMPARISON: 11/03/2020. FINDINGS: Pancreas: Visualized portions show no significant abnormality. Abdominal Aorta: No significant abnormality. IVC: No significant abnormality. Liver: The liver measures 19 cm in length. The liver is enlarged but no cirrhotic changes or focal m ass. Normal hepatopedal blood flow in the main portal vein. Gallbladder: There are multiple shadowing stones in the gallbladder. No wall thickening or pericholec ystic fluid. Bile ducts: No significant abnormality. Common bile duct measures 4.9 mm. Right kidney: The right kidney appears echogenic suggesting medical renal disease.. Free fluid: None. Additional Findings: None. IMPRESSION: Cholelithiasis but no evidence for acute cholecystitis Mild hepatomegaly Medical renal disease. Signer Name: Al Rivera Jr, MD Signed: 04/21/2022 8:38 AM Workstation Name: [id number]
[2022-04-21 10:37] LABS: Bacteria,Urine 1+ /HPF (Negative); Mucus,Urine FEW /HPF
[2022-04-21 10:43] LABS: Color,Urine Straw (Yellow); HCG Qualitative,Urine Negative (Negative)
--- NOTE | 2022-04-21 10:54 | Emergency Department Report ---
ED Abdominal Pain HPI - General Chief Complaint: Dyspnea/Respdistress Stated Complaint: HIGH BP/CHEST DISCOMFORT Time Seen by Provider: 04/21/22 07:09 Source: patient Mode of arrival: Ambulatory Limitations: No Limitations - History of Present Illness Initial Comments: 26-year-old black female with a past medical history of hypertension and gallstones presents to the emergency department for evaluation of few day history of right upper quadrant pain. She states that she knows that she has gallstones but does not usually have any pain. She states that pain started a few days ago and has been persistent and worsening. She states that pain gets so bad at times that she feels like she cannot breathe. She states that she has had persistent nausea but denies active vomiting, fever, dysuria, diarrhea, and vaginal discharge. She states that pain currently is 2 on a 10 point scale. MD Complaint: abdominal pain -: Gradual, days(s) (4-5) Location: RUQ Radiation: none Migration to: no migration Severity: mild Severity scale (0 -10): 2 Quality: cramping, aching Worsens With: eating Associated Symptoms: nausea. denies: vomiting, diarrhea, fever, chills, dysuria, hematemesis, hematochezia, melena, hematuria, anorexia, syncope - Related Data LMP Date: 03/16/22 Previous Rx's Medication Instructions Recorded Last Taken Type Ibuprofen [Motrin 600 MG tab] 600 mg PO Q8H PRN #30 tablet 12/25/19 Unknown Rx HYDROcodone/APAP 5-325 [[place] 1 each PO Q6HR PRN #10 tablet 11/03/20 Unknown Rx 5/325] Ketorolac [Toradol] 10 mg PO Q6H PRN #12 tablet 11/03/20 Unknown Rx Ondansetron [Zofran Odt] 4 mg PO Q8HR #10 tab.rapdis 11/03/20 Unknown Rx Acetaminophen/Codeine [Tylenol 1 tab PO Q6H PRN #12 tab 04/21/22 Unknown Rx /Codeine # 3 tab] Ondansetron [Zofran Odt] 4 mg PO Q8HR PRN #12 tab.rapdis 04/21/22 Unknown Rx Allergies Allergy/AdvReac Type Severity Reaction Status Date / Time No Known Allergies Allergy Verified 05/09/19 23:08 ED Review of Systems ROS: Stated complaint: HIGH BP/CHEST DISCOMFORT Other details as noted in HPI Comment: All other systems reviewed and negative Constitutional: denies: chills, fever ENT: denies: congestion Respiratory: denies: shortness of breath Cardiovascular: denies: chest pain, palpitations Gastrointestinal: abdominal pain, nausea. denies: vomiting, diarrhea, hematemesis, melena, hematochezia Genitourinary: denies: urgency, dysuria, frequency, hematuria, discharge, abnormal menses, dyspareunia Musculoskeletal: denies: back pain Skin: denies: rash, lesions Neurological: denies: headache, weakness ED Past Medical Hx - Past Medical History Hx Hypertension: No Hx Heart Attack/AMI: No Hx Congestive Heart Failure: No Hx Diabetes: No Hx Deep Vein Thrombosis: No Hx Liver Disease: No Hx Renal Disease: No Hx Sickle Cell Disease: No Hx Seizures: No Hx Asthma: No Hx COPD: No Hx HIV: No - Surgical History Hx Pacemaker: No Hx Internal Defibrillator: No - Social History Smoking Status: Never Smoker Substance Use Type: Alcohol - Medications Home Medications: Home Medications Medication Instructions Recorded Confirmed Last Taken Type Ibuprofen [Motrin 600 MG tab] 600 mg PO Q8H PRN #30 tablet 12/25/19 Unknown Rx HYDROcodone/APAP 5-325 [[place] 1 each PO Q6HR PRN #10 tablet 11/03/20 Unknown Rx 5/325] Ketorolac [Toradol] 10 mg PO Q6H PRN #12 tablet 11/03/20 Unknown Rx Ondansetron [Zofran Odt] 4 mg PO Q8HR #10 tab.rapdis 11/03/20 Unknown Rx Acetaminophen/Codeine [Tylenol 1 tab PO Q6H PRN #12 tab 04/21/22 Unknown Rx /Codeine # 3 tab] Ondansetron [Zofran Odt] 4 mg PO Q8HR PRN #12 tab.rapdis 04/21/22 Unknown Rx ED Physical Exam - General Limitations: No Limitations General appearance: alert, in no apparent distress - Head Head exam: Present: atraumatic, normocephalic - Eye Eye exam: Present: normal appearance. Absent: conjunctival injection, periorbital swelling, periorbital tenderness - ENT ENT exam: Absent: normal exam, normal orophraynx - Neck Neck exam: Present: normal inspection, tenderness, full ROM. Absent: lymphadenopathy, thyromegaly - Respiratory Respiratory exam: Present: normal lung sounds bilaterally. Absent: respiratory distress, wheezes, rales, rhonchi, stridor, chest wall tenderness - Cardiovascular Cardiovascular Exam: Present: regular rate, normal heart sounds - GI/Abdominal GI/Abdominal exam: Present: soft, tenderness (Right upper quadrant), normal bowel sounds. Absent: distended, guarding, rebound, rigid - Extremities Exam Extremities exam: Present: normal inspection, normal capillary refill. Absent: full ROM, tenderness, pedal edema, joint swelling, calf tenderness - Back Exam Back exam: Present: normal inspection. Absent: CVA tenderness (R), CVA tenderness (L), vertebral tenderness - Neurological Exam Neurological exam: Present: alert, oriented X3, CN II-XII intact, normal gait - Psychiatric Psychiatric exam: Present: normal affect, normal mood - Skin Skin exam: Present: warm, dry, intact, normal color ED Course Vital Signs 04/21/22 04/21/22 03:54 11:00 Temperature 98.0 F 98.5 F Pulse Rate 67 78 Respiratory 18 16 Rate Blood Pressure 166/82 Blood Pressure 134/76 [Right] O2 Sat by Pulse 100 100 Oximetry ED Medical Decision Making - Radiology Data Radiology results: report reviewed, image reviewed Right upper quadrant ultrasound: FINDINGS: Pancreas: Visualized portions show no significant abnormality. Abdominal Aorta: No significant abnormality. IVC: No significant abnormality. Liver: The liver measures 19 cm in length. The liver is enlarged but no cirrhotic changes or focal mass. Normal hepatopedal blood flow in the main portal vein. Gallbladder: There are multiple shadowing stones in the gallbladder. No wall thickening or pericholecystic fluid. Bile ducts: No significant abnormality. Common bile duct measures 4.9 mm. Right kidney: The right kidney appears echogenic suggesting medical renal disease.. Free fluid: None. Additional Findings: None. IMPRESSION: Cholelithiasis but no evidence for acute cholecystitis Mild hepatomegaly Medical renal disease. Chest x-ray: FINDINGS: SUPPORT DEVICES: None. HEART / MEDIASTINUM: Heart size and mediastinal contour appear within normal limits. LUNGS / PLEURA: No significant pulmonary or pleural abnormality. No pneumothorax. BONES: No significant osseous abnormality. ADDITIONAL FINDINGS: No significant additional findings. IMPRESSION: 1. No active cardiopulmonary disease. - Medical Decision Making 26-year-old black female with a past medical history of hypertension and gallstones presents to the emergency department for evaluation of few day history of right upper quadrant pain. She states that she knows that she has gallstones but does not usually have any pain. She states that pain started a few days ago and has been persistent and worsening. She states that pain gets so bad at times that she feels like she cannot breathe. She states that she has had persistent nausea but denies active vomiting, fever, dysuria, diarrhea, and vaginal discharge. She states that pain currently is 2 on a 10 point scale. Right upper quadrant tenderness. Abdominal ultrasound limited positive for gallstones but no cholelithiasis noted. Patient will be discharged home with Tylenol 3 and Zofran to use as directed. She is advised to follow-up with her primary care provider, gastroenterology, general surgery for further evaluation and management. She is advised to return to the emergency department as needed. She verbalizes understanding of and agreement with plan of care. Critical care attestation.: If time is entered above; I have spent that time in minutes in the direct care of this critically ill patient, excluding procedure time. ED Disposition Clinical Impression: Hepatomegaly Gallstone Qualifiers: Cholecystitis presence: without cholecystitis Biliary obstruction: without biliary obstruction Qualified Code(s): K80.20 - Calculus of gallbladder without cholecystitis without obstruction Disposition: 01 HOME / SELF CARE / HOMELESS Is pt being admited?: No Does the pt Need Aspirin: No Condition: Stable Instructions: Cholelithiasis, [id number], Hepatomegaly, [id number] Additional Instructions: Follow-up with hot metal crane operator for further evaluation and management. Return to the emergency department as needed. Prescriptions: Acetaminophen/Codeine [Tylenol /Codeine # 3 tab] 1 tab PO Q6H PRN #12 tab PRN Reason: Pain, Moderate (4-6) Ondansetron [Zofran Odt] 4 mg PO Q8HR PRN #12 tab.rapdis PRN Reason: Nausea And Vomiting Referrals: ULICES IRAHETA MD [Staff Physician] - 3-5 Days REICK BADILLO MD [Staff Physician] - 3-5 Days Forms: Work/School Release Form(ED) Time of Disposition: 10:54
[2022-04-21 11:12] VITALS: BP 134/76
== END 2022-04-21 11:11 | disposition home or self-care (01) ==
LOC: ED 00:32
DX: K80.80 Other cholelithiasis without obstruction (principal); R16.0 Hepatomegaly, not elsewhere classified; Z72.89 Other problems related to lifestyle; Z79.899 Other long term (current) drug therapy
CPT/HCPCS: 71046; 76705; 81001; 81025; 99283; 99284